=== PATIENT | male | born 1980 | race Caucasian/White ===

== ENCOUNTER 2023-08-02 19:08 | Emergency (ER) | payer SELFPAY ==
[~2023-08-02] VITALS: Ht 162.6 cm; Wt 93.4 kg
[2023-08-02 19:42] VITALS: O2SAT 100
[2023-08-02 20:47] LABS: BASOPHILS % 0.5 % (0.0-2.0); EOSINOPHILS % 1.2 % (0.0-5.0); HEMATOCRIT. 42.8 % (42.0-52.0); HEMOGLOBIN. 14.7 g/dL (14.0-18.0); MEAN CORPUSCULAR HEMOGLOBIN 31.7 pg (28.0-32.0); MEAN CORPUSCULAR HGB CONC 34.3 g/dL (31.0-37.0); MEAN CORPUSCULAR VOLUME 92.5 fL (80.0-94.0); MEAN PLATELET VOLUME 7.4 fl (7.4-10.4); MONOCYTES % 8.3 % (2.0-8.0); PLATELET 335 x1000/uL (130-400); RED BLOOD CELL COUNT 4.62 mill/uL (4.7-6.1); RED CELL DISTRIBUTION WIDTH 13.8 % (11.6-14.6)
[2023-08-02] MEDS ORDERED: FAMOTIDINE 20MG TABLET PO NR (21:00)
[2023-08-02] MEDS ORDERED: ONDANSETRON 4MG ODT PO NR (21:00)
[2023-08-02] MEDS ORDERED: MAGNESIUM/ALUMINUM HYDROXIDE/SIMETHICONE 30ML UDC PO NR (21:00)
[2023-08-02] MEDS ORDERED: OXYCODONE HCL/ACETAMINOPHEN 5/325MG TABLET PO ONE (21:00)
[2023-08-02 21:02] LABS: ALANINE AMINOTRANSFERASE 94 IU/L (10-49); ALBUMIN 4.6 g/dL (3.2-4.8); ASPARTATE AMINOTRANSFERASE 50 IU/L (<34); BILIRUBIN TOTAL 0.4 mg/dL (0.1-1.0); CALCIUM 9.8 mg/dL (8.7-10.4); CARBON DIOXIDE 26 mEq/L (21-32); CHLORIDE 104 mEq/L (98-107); GLUCOSE 118 mg/dL (70-105); POTASSIUM 3.8 mEq/L (3.5-5.1); PROTEIN TOTAL 8.2 g/dL (6.0-8.3); SODIUM 139 mEq/L (136-145); UREA NITROGEN BLOOD 9 mg/dL (9-23)
[2023-08-02] MEDS ORDERED: DICYCLOMINE 10 MG/5 ML ORAL SYR PO NR (21:30)
[2023-08-02 23:41] LABS: CLARITY URINE CLOUDY (CLEAR); COLOR URINE YELLOW (YELLOW); GLUCOSE URINE NEGATIVE (NEGATIVE); KETONES URINE TRACE (NEGATIVE); LEUKOCYTE ESTERASE URINE NEGATIVE (NEGATIVE); NITRITE URINE NEGATIVE (NEGATIVE); OCCULT BLOOD URINE 1+ (NEGATIVE); PH URINE 6.5 (4.5-8.0); PROTEIN URINE NEGATIVE (NEGATIVE); SPECIFIC GRAVITY URINE 1.023 (1.005-1.030)
[2023-08-03 00:21] LABS: WBC URINE NONE SEEN /hpf (0-2)
[2023-08-03 00:22] LABS: AMORPHOUS SEDIMENT URINE 1+ /lpf; BACTERIA URINE TRACE; SQUAMOUS EPITHELIAL CELL URINE FEW /lpf (RARE/1+)
[2023-08-03 00:59] VITALS: BP 114/77; PULSE 85; RESP 19; TEMP 98
== END 2023-08-03 01:00 | disposition home or self-care (01) ==
LOC: ER 19:08
DX: K80.50 Calculus of bile duct without cholangitis or cholecystitis without obstruction (principal); F19.90 Other psychoactive substance use, unspecified, uncomplicated
CPT/HCPCS: 99284; 74176; 76705; 80053; 81003; 83690; 85025; 36415; Q0162